=== PATIENT | male | born 1965 | race Caucasian/White ===

== ENCOUNTER 2017-01-22 00:38 | Inpatient (IN) ==
[2017-01-22] MEDS ORDERED: Ipratropium/Albuterol Neb 3 ML IH ONE (00:43)
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
[2017-01-22 01:04] LABS: ABG Base Excess 14.1 mEq/L (-2.0 to 3.0); ABG HCO3 43.5 mEQ/L (21-27); ABG Oxygen Saturation 84 % (95-98); ABG PH 7.36 pH Units (7.32-7.45); ABG PO2 51 mmHg (85-104); ABG TCO2 45.9 mEq/L (20-26)
[2017-01-22 01:06] LABS: Blood Gas Liter Flow 6 L/MIN
[2017-01-22 01:11] LABS: ABG PCO2 77 mmHg (35-45); Blood Gas FiO2 44 %
[2017-01-22 01:24] LABS: Hematocrit 46.2 % (37.5-50.1); Immature Granulocytes % 0.7 % (0-4); Immature Platelets 13.2 % (1.1-6.1); Lymphocytes % 6.4 %; Mean Corpuscular HGB Conc 30.3 g/dL (31.6-35.5); Mean Corpuscular Hemoglobin 28.9 pg (28.0-33.3); Mean Corpuscular Volume 95.5 fL (83.0-100.0); Mean Platelet Volume 10.6 fL (9.4-12.4); Monocytes % 8.1 %; Platelet Count 289 K/mcL (140-400); Red Blood Count 4.84 M/mcL (4.19-5.50); Red Cell Distribution Width 13.9 % (11.5-14.5); Segmented Neutrophils % 84.6 %
[2017-01-22 01:25] LABS: Basophils % 0.2 %; Monocytes # 1.3 K/mcL (0.0-1.3); Neutrophils # 13.5 K/mcL (1.6-8.9)
[2017-01-22 01:38] LABS: BUN/Creatinine Ratio 24 (6-26); Blood Urea Nitrogen 19 mg/dL (8-26); Calcium 10.1 mg/dL (8.6-10.8); Carbon Dioxide 35 mEq/L (19-29); Chloride 95 mEq/L (98-109); Glucose 134 mg/dL (70-99); Osmolality,Calculated 292 (280-300); Potassium 4.9 mEq/L (3.5-4.5); Sodium 139 mEq/L (136-145); eGFR For African Americans > 60 (> 60); eGFR For Non-African Americans > 60 (> 60)
[2017-01-22] MEDS ORDERED: Acetaminophen 325 MG TABLET PO PRN (02:58)
[2017-01-22] MEDS ORDERED: Ondansetron 4 MG/2 ML VIAL IVP PRN (02:58)
[2017-01-22] MEDS ORDERED: Naloxone 0.4 MG/ML INJ IVP PRN (02:58)
[2017-01-22] MEDS ORDERED: Ipratropium/Albuterol Neb 3 ML IH PRN (03:02)
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
[2017-01-22] MEDS ORDERED: *HR* OxyCODONE Immed Rel 15 MG TABLET PO PRN (04:36)
[2017-01-22 04:44] LABS: Hematocrit 45.3 % (37.5-50.1); Hemoglobin 13.9 g/dL (12.9-16.9); Mean Corpuscular HGB Conc 30.7 g/dL (31.6-35.5); Mean Corpuscular Hemoglobin 29.2 pg (28.0-33.3); Mean Corpuscular Volume 95.2 fL (83.0-100.0); Mean Platelet Volume 10.8 fL (9.4-12.4); Platelet Count 268 K/mcL (140-400); Red Blood Count 4.76 M/mcL (4.19-5.50)
[2017-01-22 04:49] LABS: Prothrombin Time 10.7 Seconds (9.4-12.1)
[2017-01-22 04:59] LABS: Alanine Aminotransferase 14 Units/L (0-55); Albumin/Globulin Ratio 0.9 (1.1-2.2); Alkaline Phosphatase 89 Units/L (38-126); Aspartate Amino Transferase 14 Units/L (5-34); BUN/Creatinine Ratio 22 (6-26); Bilirubin,Total 0.5 mg/dL (0.2-1.2); Blood Urea Nitrogen 17 mg/dL (8-26); Carbon Dioxide 37 mEq/L (19-29); Chloride 93 mEq/L (98-109); Globulin 3.4 g/dL (2.4-3.5); Glucose 140 mg/dL (70-99); Osmolality,Calculated 290 (280-300); Potassium 4.7 mEq/L (3.5-4.5); Sodium 138 mEq/L (136-145); Total Protein 6.4 g/dL (6.0-8.3); eGFR For African Americans > 60 (> 60); eGFR For Non-African Americans > 60 (> 60)
[2017-01-22 05:11] LABS: ABG Base Excess 14.5 mEq/L (-2.0 to 3.0); ABG HCO3 42.5 mEQ/L (21-27); ABG Oxygen Saturation 92 % (95-98); ABG PCO2 67 mmHg (35-45); ABG PH 7.41 pH Units (7.32-7.45); ABG PO2 63 mmHg (85-104); ABG TCO2 44.6 mEq/L (20-26)
[2017-01-22 05:12] LABS: Blood Gas FiO2 40 %; Blood Gas Liter Flow 5 L/MIN
[2017-01-22] MEDS: methylPREDNISolone 125 MG/2 ML VIAL IVP SCH ×3 (06:07→17:20)
[2017-01-22] MEDS: *HR* Heparin 5,000 UNIT/ML VIAL SQ SCH ×2 (06:10→17:20)
[2017-01-22] MEDS: Budesonide/Formoterol 160/4.5 MDI IH SCH ×2 (07:54→20:32)
[2017-01-22] MEDS ORDERED: Azithromycin 500 MG in D5% in Water 250 ML IVPB ONE (08:36)
[2017-01-22] MEDS ORDERED: Albuterol 2.5 MG/3 ML NEBULIZER IH PRN (08:38)
[2017-01-22] MEDS: Aspirin 81 MG TAB.CHEW PO SCH (09:05)
[2017-01-22] MEDS: Famotidine 20 MG TABLET PO SCH ×2 (09:05→20:40)
[2017-01-22] MEDS: Nicotine 21 MG PATCH.TD24 TD SCH (09:05)
[2017-01-22] MEDS: Folic Acid 1 MG TABLET PO SCH (09:05)
[2017-01-22 10:01] LABS: Bilirubin,Urine Negative (Negative); Blood,Urine Negative (Negative); Clarity,Urine Clear (Clear); Color,Urine Yellow (Yellow); Glucose,Urine (UA) 100 mg/dL (Normal); Ketones,Urine Trace mg/dL (Negative); Leukocyte Esterase,Urine Negative (Negative); Nitrite,Urine Negative (Negative); Protein,Urine Negative (Neg-Trace); Specific Gravity,Urine 1.021 (1.010-1.025); Urobilinogen,Urine Normal (Normal)
[2017-01-22] MEDS: *HR* OxyCODONE Immed Rel 15 MG TABLET PO PRN ×3 (10:27→20:40)
[2017-01-22] MEDS: Ipratropium/Albuterol Neb 3 ML IH SCH ×4 (11:21→23:00)
--- NOTE | 2017-01-22 12:03 | Electrocardiograph Report ---
[place] [id number] Test Date: 2017-01-22 Pat Name: Avery Bradford Department: 105 Room: 2NE24 Gender: M Chief Pilot: : 1965 Requested By: Bayron Tsai Order Number: [id number] Reading MD: Bolivar Velazquez MD Measurements Intervals [place] Rate: 92 P: 69 PA: 135 QRS: -57 QRSD: 93 T: 74 QT: 317 QTc: 367 Interpretive Statements SINUS RHYTHM WITH MARKED SINUS ARRHYTHMIA INCOMPLETE RIGHT BUNDLE BRANCH BLOCK LEFT ANTERIOR FASCICULAR BLOCK BASELINE ARTIFACT Electronically Signed On 01-22-2017 12:01:42 EDT by Bolivar Velazquez MD
--- NOTE | 2017-01-22 13:52 | Event Note ---
<Houston Calero G - Last Filed: 01/22/17 13:50> Date of Encounter: 01/22/17 Time of Encounter: 13:50 Patient seen and examined at bedside. She reports shortness of breath that is worse than baseline but better since admission. He also reports a dry cough at this time. Vital signs are stable. Pulmonary Exam reveals scattered expiratory wheezes throughout, no rales or rhonchi. A/P: Acute exacerbation of COPD: Continue scheduled bronchodilators, antibiotic therapy with Rocephin and Zithromax, IV steroids. Patient appears improved clinically. Continue Symbicort. <Warren Matthew P - Last Filed: 01/22/17 14:58> Date of Encounter: 01/22/17 I examined this patient and my medical decision-making was reviewed with the MANAGING CONSULTANT CLINICAL PROFESSOR/PA/Advanced Practice Nurse/Resident Physician. I agree with the documented findings, disposition and treatment plan as described except to the extent set forth below.
[2017-01-23] MEDS: methylPREDNISolone 125 MG/2 ML VIAL IVP SCH ×4 (00:04→16:56)
[2017-01-23] MEDS: *HR* OxyCODONE Immed Rel 15 MG TABLET PO PRN ×6 (00:47→21:19)
[2017-01-23] MEDS: Ipratropium/Albuterol Neb 3 ML IH SCH ×6 (04:21→23:48)
[2017-01-23] MEDS: *HR* Heparin 5,000 UNIT/ML VIAL SQ SCH ×2 (04:52→16:56)
[2017-01-23 06:42] LABS: Basophils % 0.2 %; Hematocrit 43.2 % (37.5-50.1); Hemoglobin 13.3 g/dL (12.9-16.9); Immature Granulocytes % 0.8 % (0-4); Lymphocytes # 0.7 K/mcL (0.6-4.6); Lymphocytes % 4.6 %; Mean Corpuscular HGB Conc 30.8 g/dL (31.6-35.5); Mean Corpuscular Hemoglobin 28.9 pg (28.0-33.3); Mean Corpuscular Volume 93.9 fL (83.0-100.0); Mean Platelet Volume 11.3 fL (9.4-12.4); Monocytes # 0.6 K/mcL (0.0-1.3); Neutrophils # 14.1 K/mcL (1.6-8.9); Nucleated Red Blood Cells 0.1 /100 WBC (0); Platelet Count 270 K/mcL (140-400); Segmented Neutrophils % 90.4 %
[2017-01-23 06:55] LABS: BUN/Creatinine Ratio 29 (6-26); Blood Urea Nitrogen 22 mg/dL (8-26); Calcium 9.7 mg/dL (8.6-10.8); Carbon Dioxide 36 mEq/L (19-29); Chloride 96 mEq/L (98-109); Glucose 132 mg/dL (70-99); Magnesium 1.9 mg/dL (1.6-2.6); Osmolality,Calculated 295 (280-300); Potassium 4.6 mEq/L (3.5-4.5); Sodium 140 mEq/L (136-145); eGFR For African Americans > 60 (> 60); eGFR For Non-African Americans > 60 (> 60)
[2017-01-23] MEDS: Budesonide/Formoterol 160/4.5 MDI IH SCH ×2 (07:28→19:45)
[2017-01-23] MEDS: Folic Acid 1 MG TABLET PO SCH (08:54)
[2017-01-23] MEDS: Aspirin 81 MG TAB.CHEW PO SCH (08:54)
[2017-01-23] MEDS: Famotidine 20 MG TABLET PO SCH (08:54)
[2017-01-23] MEDS: Nicotine 21 MG PATCH.TD24 TD SCH (08:55)
[2017-01-23] MEDS ORDERED: Azithromycin 250 MG in D5% in Water 250 ML IVPB SCH (09:00)
--- NOTE | 2017-01-23 11:10 | Internal Med Progress Note ---
<SanjayHouston dove - Last Filed: 01/23/17 11:07> Date of Encounter: 01/23/17 Time of Encounter: 11:08 - Assessment and plan (1) Acute on chronic respiratory failure with hypoxia and hypercapnia Current Visit: Yes Status: Acute Assessment and plan: Likely related to acute exacerbation of COPD. Patient is at baseline oxygen use. (2) Acute exacerbation of chronic obstructive airways disease Current Visit: Yes Status: Acute Assessment and plan: Improving. Continue with IV Solu-Medrol, scheduled breathing treatments, antibiotics, will wean IV steroids. Patient will likely be discharged on a lengthy steroid taper. (3) Tobacco abuse Current Visit: Yes Status: Chronic Assessment and plan: Patient states that he is trying to quit. Does not appear to 4 cigarettes daily. Patient states that he wants to quit upon discharge. (4) GERD (gastroesophageal reflux disease) Current Visit: Yes Status: Chronic Assessment and plan: Stable. Continue Pepcid. Qualifiers: Esophagitis presence: esophagitis presence not specified Qualified Code(s) : K21.9 - Gastro-esophageal reflux disease without esophagitis (5) DVT prophylaxis Current Visit: Yes Status: Acute Assessment and plan: Heparin 5000 units subcutaneous twice a day - Subjective Interval history: Patient seen and examined at bedside. Patient states that he feels better. Patient still reports mild shortness of breath but is improved. Patient denies cough at this time. - Constitutional Vitals: Temp Pulse Resp BP Pulse Ox 97.7 F 88 14 126/91 89 01/23/17 06:02 01/23/17 06:02 01/23/17 07:30 01/23/17 06:02 01/23/17 07:30 General appearance: Present: A&O X 3, no acute distress, answers questions appropriately - Respiratory Respiratory exam: Present: decreased breath sounds, wheezes (Rare scattered, improved from yesterday). Absent: rales, rhonchi - Cardiovascular Cardiovascular exam: Present: RRR. Absent: gallop, rubs, systolic murmur - GI/Abdominal GI/Abdominal exam: Present: normal bowel sounds, soft. Absent: distended, tenderness - Extremities Exam Extremities exam: Present: warm. Absent: pedal edema, tenderness - Neurological Exam Neurological exam: Present: alert, CN II-XII intact, oriented X3, no focal deficits Internal Medicine: Result - Labs CBC & Chem 7: 01/23/17 05:05 01/23/17 05:05 Labs: Short CBC 01/23/17 Range/Units 05:05 WBC 15.6 H (4.3-11.1) K/mcL Hgb 13.3 (12.9-16.9) g/dL Hct 43.2 (37.5-50.1) % Plt Count 270 (140-400) K/mcL Neutrophils # 14.1 H (1.6-8.9) K/mcL BMP 01/23/17 05:05 Sodium 140 Potassium 4.6 H Chloride 96 L Carbon Dioxide 36 H BUN 22 Creatinine 0.75 Glucose 132 H Calcium 9.7 - ABG Interpretation ABG results: ABG ABG pH 7.41 pH Units (7.32-7.45) 01/22/17 05:03 ABG pCO2 67 mmHg (35-45) H 01/22/17 05:03 ABG pO2 63 mmHg (85-104) L 01/22/17 05:03 ABG O2 Saturation 92 % (95-98) L 01/22/17 05:03 PT/INR, D-dimer PT 10.7 Seconds (9.4-12.1) 01/22/17 04:30 Consult Discharge Plan - Plan Referrals: Federica Boston MD [Primary Care Provider] - ( [facility] and will see him when he gets back there) <Warren Matthew P - Last Filed: 01/23/17 16:08> Date of Encounter: 01/23/17 - Constitutional Vitals: Temp Pulse Resp BP Pulse Ox 97.7 F 88 14 126/91 89 01/23/17 06:02 01/23/17 06:02 01/23/17 15:35 01/23/17 06:02 01/23/17 15:35 Internal Medicine: Result - Labs CBC & Chem 7: 01/23/17 05:05 01/23/17 05:05 Labs: Short CBC 01/23/17 Range/Units 05:05 WBC 15.6 H (4.3-11.1) K/mcL Hgb 13.3 (12.9-16.9) g/dL Hct 43.2 (37.5-50.1) % Plt Count 270 (140-400) K/mcL Neutrophils # 14.1 H (1.6-8.9) K/mcL BMP 01/23/17 05:05 Sodium 140 Potassium 4.6 H Chloride 96 L Carbon Dioxide 36 H BUN 22 Creatinine 0.75 Glucose 132 H Calcium 9.7 - ABG Interpretation ABG results: ABG ABG pH 7.41 pH Units (7.32-7.45) 01/22/17 05:03 ABG pCO2 67 mmHg (35-45) H 01/22/17 05:03 ABG pO2 63 mmHg (85-104) L 01/22/17 05:03 ABG O2 Saturation 92 % (95-98) L 01/22/17 05:03 PT/INR, D-dimer PT 10.7 Seconds (9.4-12.1) 01/22/17 04:30 - Attending Attestation I examined this patient and my medical decision-making was reviewed with the RESIDENTIAL CARPET INSTALLER/PA/Advanced Practice Nurse/Resident Physician. I agree with the documented findings, disposition and treatment plan as described except to the extent set forth below. COPD exacerbation is getting better. Likely home in 1-2 days.
[2017-01-24] MEDS: methylPREDNISolone 125 MG/2 ML VIAL IVP SCH ×2 (00:26→05:12)
[2017-01-24] MEDS: *HR* OxyCODONE Immed Rel 15 MG TABLET PO PRN ×3 (01:14→09:52)
[2017-01-24] MEDS: Ipratropium/Albuterol Neb 3 ML IH SCH ×3 (03:50→11:37)
[2017-01-24] MEDS: *HR* Heparin 5,000 UNIT/ML VIAL SQ SCH (05:12)
[2017-01-24 06:45] VITALS: BP 156/93
[2017-01-24] MEDS: Budesonide/Formoterol 160/4.5 MDI IH SCH (07:31)
[2017-01-24 07:39] LABS: BUN/Creatinine Ratio 28 (6-26); Blood Urea Nitrogen 21 mg/dL (8-26); Calcium 10.1 mg/dL (8.6-10.8); Carbon Dioxide 36 mEq/L (19-29); Chloride 94 mEq/L (98-109); Glucose 120 mg/dL (70-99); Osmolality,Calculated 290 (280-300); Potassium 4.4 mEq/L (3.5-4.5); Sodium 138 mEq/L (136-145); eGFR For African Americans > 60 (> 60); eGFR For Non-African Americans > 60 (> 60)
[2017-01-24 08:16] LABS: Basophils % 0.2 %; Hematocrit 41.2 % (37.5-50.1); Hemoglobin 12.5 g/dL (12.9-16.9); Immature Granulocytes % 1.3 % (0-4); Lymphocytes # 0.5 K/mcL (0.6-4.6); Lymphocytes % 3.2 %; Mean Corpuscular HGB Conc 30.3 g/dL (31.6-35.5); Mean Corpuscular Hemoglobin 28.5 pg (28.0-33.3); Mean Corpuscular Volume 93.8 fL (83.0-100.0); Mean Platelet Volume 10.9 fL (9.4-12.4); Monocytes # 0.8 K/mcL (0.0-1.3); Monocytes % 4.4 %; Neutrophils # 15.6 K/mcL (1.6-8.9); Nucleated Red Blood Cells 0.2 /100 WBC (0); Platelet Count 274 K/mcL (140-400); Red Blood Count 4.39 M/mcL (4.19-5.50); Red Cell Distribution Width 13.7 % (11.5-14.5); Segmented Neutrophils % 90.9 %
--- NOTE | 2017-01-24 08:36 | Discharge Summary ---
<Houston Calero - Last Filed: 01/24/17 08:33> Date of Encounter: 01/24/17 Time of Encounter: 08:34 - Discharge Diagnosis (1) Acute on chronic respiratory failure with hypoxia and hypercapnia Priority: Primary Status: Acute (2) Acute exacerbation of chronic obstructive airways disease Priority: Primary Status: Acute (3) Tobacco abuse Priority: Secondary Status: Chronic (4) GERD (gastroesophageal reflux disease) Priority: Secondary Status: Chronic Qualifiers: Esophagitis presence: esophagitis presence not specified Qualified Code(s) : K21.9 - Gastro-esophageal reflux disease without esophagitis (5) DVT prophylaxis Priority: Secondary Status: Acute - Discharge Medications Prescriptions: Oxycodone HCl [Roxicodone 30 MG Immed Release] 30 mg PO Q4HR PRN #60 tablet PRN Reason: Pain Azithromycin [Zithromax] 250 mg PO DAILY #3 tablet predniSONE [PredniSONE] See Taper PO DAILY 21 Days Home Medications: Albuterol Sulfate [Ventolin Hfa] 2 puff IH Q4HR PRN 12/06/15 [History] Aspirin 81 mg PO DAILY 12/06/15 [History] Docusate [Colace] 100 mg PO BID 12/06/15 [History] Fluticasone Propionate Nasal [Flonase] 1 spray NS DAILY 12/06/15 [History] Potassium Chloride [K-Tab ER] 20 meq PO DAILY 12/06/15 [History] Folic Acid 1 mg PO DAILY 15 Days 12/10/15 [Rx] Ipratropium/Albuterol Neb [Duoneb] 3 ml IH Q4HR PRN #0 02/01/16 [Rx] Lactobacillus [Culturelle] 1 each PO BID 5 Days 02/01/16 [Rx] Benzonatate [Tessalon] 200 mg PO TID PRN 01/22/17 [History] Calcium Carbonate/Vitamin D3 [Calcium 600-Vit D3 400 Tablet] 1 tab PO DAILY [History] Cyanocobalamin (Vitamin B-12) [Vitamin B12] 1,000 mcg PO DAILY 01/22/17 [History ] Ergocalciferol (VITAMIN D2) [Vitamin D2] 50,000 unit PO QWEEK 01/22/17 [History] Escitalopram [Lexapro] 20 mg PO DAILY 01/22/17 [History] Ferrous Sulfate [Iron] 325 mg PO DAILY 01/22/17 [History] Guaifenesin [Tab Tussin] 400 mg PO BID 01/22/17 [History] Loratadine [Allergy Relief] 10 mg PO DAILY 01/22/17 [History] Magnesium Hydroxide [Milk of Magnesia] 30 ml PO DAILY PRN 01/22/17 [History] Mometasone/Formoterol [Dulera 100 Mcg/5 Mcg Inhaler] 1 puff IH BID 01/22/17 [ History] Omeprazole [PriLOSEC] 20 mg PO DAILY 01/22/17 [History] Azithromycin [Zithromax] 250 mg PO DAILY #3 tablet 01/24/17 [Rx] Oxycodone HCl [Roxicodone 30 MG Immed Release] 30 mg PO Q4HR PRN #60 tablet [Rx] predniSONE [PredniSONE] See Taper PO DAILY 21 Days 01/24/17 [Rx] Allergies/Adverse Reactions: Allergies gabapentin Allergy (Verified 12/06/15 10:51) Hives Levalbuterol [From Xopenex] Allergy (Verified 12/06/15 10:53) Hives peanut Adverse Reaction (Verified 01/22/17 10:35) Abdominal Pain Date of admission: 01/22/17 02:58 Primary care physician: Federica Boston Consults: 01/22/17 03:05 Consult to Nurse Navigator [CONS] Routine Comment: Consult to Pulmonary Rehab [CONS] Routine Reason for Consult: copd Call Completed: No 01/22/17 05:21 Consult to Nutrition [CONS] Routine Comment: Consulting Provider: NUTRITION Reason for Dietary Consult: MST Score Discharging clinician: Houston Calero Anticipated date of discharge: 01/24/17 - Patient Status Disposition: Transfer SNF Condition: Fair Functional capacity at discharge: independent ambulation Overall status at discharge: patient is progressing back to baseline - Discharge Instructions Follow Up With: Effie Garces MD [Partnered Physician] - (appointment requested ) Federica Boston MD [Primary Care Provider] - ( [facility] and will see him when he gets back there) Additional Instructions: Please follow-up with your primary care physician. Please resume your home medications. Please complete your antibiotic. Please taper your steroids as directed. We would strongly encourage you to stop smoking completely. Please return for any new or worsening symptoms. - Diet and Activity Activity: increase activity as tolerated Diet: low salt diet Interval History: Patient seen and examined at bedside. Patient states that he feels pretty good today. Patient states that his breathing is at baseline. Patient denies cough , fever, chills, chest pain. Hospital course: Mr. Bradford is a 51 year old male with history of severe COPD presented with acute onset shortness of breath, cough, sputum production. Patient was treated for a COPD exacerbation with IV steroids, scheduled bronchodilators, antibiotics. Patient recovered well and his respiratory status has returned to baseline. Patient will be discharged to [facility] on a prednisone taper. Patient is then discharged in stable condition. - Time Spent with Patient Total time spent providing and/or coordinating discharge services: - Constitutional Vitals: Temp Pulse Resp BP Pulse Ox 97.8 F 76 16 156/93 95 01/24/17 05:07 01/24/17 05:07 01/24/17 05:07 01/24/17 05:07 01/24/17 05:07 General appearance: Present: A&O X 3, no acute distress, answers questions appropriately - Respiratory Respiratory exam: Present: decreased breath sounds, wheezes (Rare scattered). Absent: rales, respiratory distress, rhonchi, tachypnea - Cardiovascular Cardiovascular exam: Present: RRR. Absent: gallop, rubs, systolic murmur - GI/Abdominal GI/Abdominal exam: Present: normal bowel sounds, soft. Absent: distended, tenderness - Extremities Exam Extremities exam: Present: warm. Absent: pedal edema, tenderness - Neurological Exam Neurological exam: Present: alert, CN II-XII intact, oriented X3, no focal deficits <Tiff,Warren P - Last Filed: 01/24/17 11:24> Date of Encounter: 01/24/17 Date of admission: 01/22/17 02:58 Primary care physician: Federica Boston Consults: 01/22/17 03:05 Consult to Nurse Navigator [CONS] Routine Comment: Consult to Pulmonary Rehab [CONS] Routine Reason for Consult: copd Call Completed: No 01/22/17 05:21 Consult to Nutrition [CONS] Routine Comment: Consulting Provider: NUTRITION Reason for Dietary Consult: MST Score Hospital course: Mr. Bradford is a 51 year old male - Time Spent with Patient Total time spent providing and/or coordinating discharge services: - Constitutional Vitals: Temp Pulse Resp BP Pulse Ox 97.8 F 76 20 156/93 95 01/24/17 05:07 01/24/17 05:07 01/24/17 07:31 01/24/17 05:07 01/24/17 07:31 - Attending Attestation I examined this patient and my medical decision-making was reviewed with the SOFTWARE DEVELOPMENT COORDINATOR/PA/Advanced Practice Nurse/Resident Physician. I agree with the documented findings, disposition and treatment plan as described except to the extent set forth below.
--- NOTE | 2017-01-24 08:43 | Physician Discharge Referral ---
<Houston Calero - Last Filed: 01/24/17 08:42> [facility] Referral Info Transfer To: Shahid Banks Provider in Charge after Transfer: PCP Institutional Level of Care: Skilled - Diagnosis (1) Acute on chronic respiratory failure with hypoxia and hypercapnia Priority: Primary Status: Acute (2) Acute exacerbation of chronic obstructive airways disease Priority: Primary Status: Acute (3) Tobacco abuse Priority: Secondary Status: Chronic (4) GERD (gastroesophageal reflux disease) Priority: Secondary Status: Chronic (5) DVT prophylaxis Priority: Secondary Status: Acute Prognosis: Fair Aware of Diagnosis: Patient Aware of Prognosis: Patient - Transfer Medications Prescriptions: Oxycodone HCl [Roxicodone 30 MG Immed Release] 30 mg PO Q4HR PRN #60 tablet PRN Reason: Pain Azithromycin [Zithromax] 250 mg PO DAILY #3 tablet predniSONE [PredniSONE] See Taper PO DAILY 21 Days Home Medications: Albuterol Sulfate [Ventolin Hfa] 2 puff IH Q4HR PRN 12/06/15 [History] Aspirin 81 mg PO DAILY 12/06/15 [History] Docusate [Colace] 100 mg PO BID 12/06/15 [History] Fluticasone Propionate Nasal [Flonase] 1 spray NS DAILY 12/06/15 [History] Potassium Chloride [K-Tab ER] 20 meq PO DAILY 12/06/15 [History] Folic Acid 1 mg PO DAILY 15 Days 12/10/15 [Rx] Ipratropium/Albuterol Neb [Duoneb] 3 ml IH Q4HR PRN #0 02/01/16 [Rx] Lactobacillus [Culturelle] 1 each PO BID 5 Days 02/01/16 [Rx] Benzonatate [Tessalon] 200 mg PO TID PRN 01/22/17 [History] Calcium Carbonate/Vitamin D3 [Calcium 600-Vit D3 400 Tablet] 1 tab PO DAILY [History] Cyanocobalamin (Vitamin B-12) [Vitamin B12] 1,000 mcg PO DAILY 01/22/17 [History ] Ergocalciferol (VITAMIN D2) [Vitamin D2] 50,000 unit PO QWEEK 01/22/17 [History] Escitalopram [Lexapro] 20 mg PO DAILY 01/22/17 [History] Ferrous Sulfate [Iron] 325 mg PO DAILY 01/22/17 [History] Guaifenesin [Tab Tussin] 400 mg PO BID 01/22/17 [History] Loratadine [Allergy Relief] 10 mg PO DAILY 01/22/17 [History] Magnesium Hydroxide [Milk of Magnesia] 30 ml PO DAILY PRN 01/22/17 [History] Mometasone/Formoterol [Dulera 100 Mcg/5 Mcg Inhaler] 1 puff IH BID 01/22/17 [ History] Omeprazole [PriLOSEC] 20 mg PO DAILY 01/22/17 [History] Azithromycin [Zithromax] 250 mg PO DAILY #3 tablet 01/24/17 [Rx] Oxycodone HCl [Roxicodone 30 MG Immed Release] 30 mg PO Q4HR PRN #60 tablet [Rx] predniSONE [PredniSONE] See Taper PO DAILY 21 Days 01/24/17 [Rx] Allergies/Adverse Reactions: Allergies gabapentin Allergy (Verified 12/06/15 10:51) Hives Levalbuterol [From Xopenex] Allergy (Verified 12/06/15 10:53) Hives peanut Adverse Reaction (Verified 01/22/17 10:35) Abdominal Pain - Respiratory Orders Oxygen / L per min (5) Smoking Cessation: Smoking cessation has been advised. For more information, call the Intermolecular Line at 2-278-PGFK-NOW. - Ancillary Orders May use pressure relief devices daily prn - Advance Directives Code Status: Full Code - Mobility Orders Ambulate - Rehabiliation Orders Rehab Potential: Fair Rehab Orders: Evaluation for Physical Therapy, Evaluation for Occupational Therapy - Treatments Skin tear care topically daily PRN per policy - Diet Orders Regular, No Added Salt (JIM) CERTIFICATION: I certify that the transfer of the above named patient to an Extended Care Facility is necessary for the continuing treatment of the diagnosis listed. The above information is true and accurate reflection of patient's current condition. Confidential - Redisclosure prohibited without a patient's written consent. <Warren Matthew - Last Filed: 01/24/17 11:24> - Respiratory Orders Smoking Cessation: Smoking cessation has been advised. For more information, call the [employer] Quit Line at 4-356-MLIA-NOW. CERTIFICATION: I certify that the transfer of the above named patient to an Extended Care Facility is necessary for the continuing treatment of the diagnosis listed. The above information is true and accurate reflection of patient's current condition. Confidential - Redisclosure prohibited without a patient's written consent.
[2017-01-24] MEDS ORDERED: Loratadine 10 MG TABLET PO SCH (09:00)
[2017-01-24] MEDS ORDERED: predniSONE 20 MG TABLET PO SCH (09:00)
[2017-01-24] MEDS: Nicotine 21 MG PATCH.TD24 TD SCH (09:48)
[2017-01-24] MEDS: Aspirin 81 MG TAB.CHEW PO SCH (09:52)
[2017-01-24] MEDS: Folic Acid 1 MG TABLET PO SCH (09:53)
--- NOTE | 2017-01-26 13:30 | Electrocardiograph Report ---
[place] [id number] Test Date: 2017-01-24 Pat Name: Avery Bradford Department: 111 Room: 2NE24 Gender: M [employer]: : 1965 Requested By: Warren Matthew Order Number: [id number] Reading MD: Bolivar Velazquez MD Measurements Intervals [place] Rate: 72 P: 53 MS: 147 QRS: -36 QRSD: 92 T: 62 QT: 365 QTc: 389 Interpretive Statements SINUS RHYTHM WITH SINUS ARRHYTHMIA MARKED LEFT AXIS DEVIATION Electronically Signed On 01-26-2017 13:29:11 EDT by Bolivar Velazquez MD
== END 2017-01-24 12:00 | DRG 140 ==
LOC: EMEROO 00:38 → 2NENU 00:38
PROVIDERS: ADMIT Internal Medicine Sleep Medicine; ATTEND Internal Medicine